=== PATIENT | female | born 1960 | race Caucasian/White ===

== ENCOUNTER 2016-10-22 18:58 | Emergency (ER) | payer SELFPAY ==
[~2016-10-22] VITALS: Ht 157.5 cm; Wt 94.8 kg
[2016-10-22 22:16] VITALS: BP 120/79
== END 2016-10-22 22:16 | disposition home or self-care (01) ==
LOC: ED 18:58
DX: T78.40XA Allergy, unspecified, initial encounter (principal); X58.XXXA Exposure to other specified factors, initial encounter